=== PATIENT | female | born 2005 | race Caucasian/White ===

== ENCOUNTER 2023-11-12 17:16 | Emergency (ER) | payer OTHER, SELFPAY ==
--- NOTE | ~2023-11-12 | XR_ITS ---
XR knee LT 3V Ordering provider: Rubio Gallo PA-C History: . L knee locked up . Comparison: None. FINDINGS: BONES: No acute fracture or dislocation. JOINT SPACES: Normal. SOFT TISSUES: Normal. IMPRESSION: No acute osseous abnormality left knee. Reviewed, dictated and finalized at location A.
[2023-11-12 17:19] VITALS: BP 131/83; PULSE 98; RESP 15; TEMP 36.9; O2SAT 98
[2023-11-13 01:01] VITALS: BP 118/76; PULSE 62; RESP 15; O2SAT 100
--- NOTE | 2023-11-13 01:48 | ED.LOWEXIN ---
HPI - Extremity Injury (Lower) General Chief Complaint: Extremity Injury, Lower Stated Complaint: left knee locked up Time Seen by Provider: 11/13/23 01:08 Source: patient Mode of arrival: ambulatory Limitations: no limitations History of Present Illness HPI Narrative: This is a 18-year-old female who presents to the ED with chief complaint of left knee being ?locked up. ? States that she had an episode today while resting her knee in the car where it felt like the knee was locked in a flexed position. States that it felt similar to a knee catching that she experienced on the right side when she had meniscal tear. As I am interviewing her, she states that the symptoms have largely resolved. Denies any further sites of pain. Denies any injury. Related Data Allergies Allergy/AdvReac Type Severity Reaction Status Date / Time No Known Allergies Allergy Verified 11/12/23 17:19 Review of Systems Review of Systems: All systems as dictated in HPI Exam Narrative: GENERAL: Well-appearing, well-nourished, and in no acute distress. MSK: Normal range of motion. No edema. SKIN: Warm, dry, no rash. NEURO: Alert and oriented x4. No focal deficits. PSYCH: Normal mood and affect. Course Vital Signs Vital signs: Vital Signs Temperature 98.5 F 11/12/23 17:19 Pulse Rate 98 11/12/23 17:19 Respiratory Rate 15 11/12/23 17:19 Blood Pressure 131/83 11/12/23 17:19 Pulse Oximetry 98 11/12/23 17:19 Oxygen Delivery Room Air 11/12/23 17:19 Temperature 98.5 F 11/12/23 17:19 Pulse Rate 83 11/13/23 02:01 Respiratory Rate 15 11/13/23 02:01 Blood Pressure 118/74 11/13/23 02:01 Pulse Oximetry 100 11/13/23 02:01 Oxygen Delivery Room Air 11/12/23 17:19 MDM - Extremity Injury (Lower) MDM Narrative Medical decision making narrative: This is a 18-year-old female who presents to the ED with chief complaint of left knee locking up. Vitals are normal. Exam is benign overall. No effusion or tenderness to palpation. She is able to bear weight. Range of motion is full. X-rays are negative for acute osseous findings. Pt will be discharged in stable condition. Return precautions given and supportive measures discussed. Pt is understanding and agreeable with plan for discharge and follow-up with PCP. Discharge Plan Discharge Clinical Impression: Knee clicking Patient Disposition: Home, Self-Care Condition: Stable Instructions: Antibiotic Form Additional Instructions: Your exam and imaging today are reassuring overall. Please take Tylenol and ibuprofen as needed for discomfort in the knee. If you have any new or worsening symptoms please return to the ER for further evaluation, otherwise follow up with orthopedist. Follow-up/Referrals: PHYSICIAN,PRODUCT SAFETY ENGINEER [Primary Care Provider] - Stand Alone Forms: Work/School Release IP Time of Disposition: 01:50
[2023-11-13 02:01] VITALS: BP 118/74; PULSE 83; RESP 15; O2SAT 100
== END 2023-11-13 02:02 | disposition home or self-care (01) ==
PROVIDERS: Emergency Provider Physician Assistant
DX: R29.898 Other symptoms and signs involving the musculoskeletal system (principal)
CPT/HCPCS: 73562; 99283